=== PATIENT | male | born 2000 | race Hispanic/Latino ===

== ENCOUNTER 2021-04-29 22:28 | Emergency (ER) | payer OTHER ==
[~2021-04-29] VITALS: Ht 172.7 cm; Wt 64.9 kg
[2021-04-29 22:39] VITALS: BP 127/87
[2021-04-29 22:45] VITALS: BP 127/87
[2021-04-29] MEDS: IBUPROFEN 600 MG TABLET PO ONE (22:45)
[2021-04-29 22:56] LABS: APPEARANCE,URINE Clear (CLEAR); BILIRUBIN,URINE Negative (NEGATIVE); COLOR,URINE Yellow (YELLOW); GLUCOSE, URINE (UA) Negative (NEGATIVE); KETONES,URINE Negative (NEGATIVE); LEUKOCYTE ESTERASE ,URINE Negative (NEGATIVE); NITRATE,URINE Negative (NEGATIVE); OCCULT BLOOD,URINE Negative (NEGATIVE); PROTEIN,URINE Trace mg/dL (NEGATIVE)
[2021-04-29 23:00] VITALS: BP 131/86
[2021-04-29 23:15] VITALS: BP 128/84
[2021-04-29 23:25] VITALS: BP 127/87
[2021-04-29 23:45] VITALS: BP 141/89
[2021-04-30 01:06] VITALS: BP 128/74
[2021-04-30] MEDS ORDERED: IBUP-2070 PO (01:15)
== END 2021-04-30 01:41 | disposition home or self-care (01) ==
LOC: EDH 23:02
DX: S40.012A Contusion of left shoulder, initial encounter (principal); S09.90XA Unspecified injury of head, initial encounter; Z79.899 Other long term (current) drug therapy; V49.49XA Driver injured in collision with other motor vehicles in traffic accident, initial encounter; Y93.89 Activity, other specified; Y92.410 Unspecified street and highway as the place of occurrence of the external cause; Y99.8 Other external cause status
CPT/HCPCS: 70450; 71046; 73000; 73030; 81003